=== PATIENT | female | born 1995 | race African-American/Black ===

== ENCOUNTER 2022-03-22 12:15 | Emergency (ER) | payer BC, SELFPAY ==
--- NOTE | ~2022-03-22 | US_ITS ---
EXAMINATION: US abdomen limited DATE: 03/22/2022 13:46 INDICATION: Right sided bowel. TECHNIQUE: Multiple grayscale and Doppler ultrasound images of the abdomen were obtained. COMPARISON: None available FINDINGS: Bowel gas obscures visualization of the pancreas. The visualized portions of the pancreas a re unremarkable. The liver is normal with normal echogenicity and echotexture. No surface nodularity. Normal hepatopetal flow in the main portal vein. The gallbladder is normal with no abnormal wall thi ckening, pericholecystic fluid or stones. The normal common bile duct measures 6 mm. There was no son ographic Epstein sign. IMPRESSION: 1. Normal sonographic study of the gallbladder. Reviewed, dictated and finalized at location A.
--- NOTE | ~2022-03-22 | US_ITS ---
EXAMINATION: US OB <=14 wk fetus w TV DATE: 03/22/2022 13:50 INDICATION: Right-sided abdominal pain during first trimester TECHNIQUE: Real-time pelvic transabdominal and transvaginal ultrasound was performed. COMPARISON: None. FINDINGS: The uterus measures 7.3 x 4.9 x 5.2 cm. There is an intrauterine gestational sac. A yolk s ac is identified. heart motion is identified measuring 115 beats per minute (bpm) by M-mode Dop pler. The crown rump length measures 3 mm , which correlates with an estimated gestational age of 6 weeks and 0 day(s) (+/-) 4 day(s). There is a 9 mm x 8 mm complex hyperechoic area projecting in to the gestational sac which appears to be contiguous with the adjacent myometrium. The right ovary measures 2.2 x 1.7 x 1.6 cm. The left ovary measures 2.4 x 2.1 x 2.4 cm. There is nor mal vascular flow in the ovaries. There is no free fluid in the pelvis. IMPRESSION: 1. Live intrauterine with an estimated gestational age of 6 weeks and 0 day(s) (+/-) 4 day( s) and an estimated delivery date of 11/15/2022. 2. Small complex hyperechoic area projecting into the gestational sac adjacent to the pole whic h could reflect some mucosal fibroid. Ultrasound follow-up is recommended. Reviewed, dictated and finalized at location A. IMPRESSION: 1. Live intrauterine with an estimated gestational age of 6 weeks and 0 day(s) (+/-) 4 day(s) and an estimated delivery date of 11/15/2022. 2. Small complex hyperechoic area projecting into the gestational sac adjacent to the pole which could reflect some mucosal fibroid. Ultrasound follow-u p is recommended.
[2022-03-22 12:21] VITALS: BP 119/79; PULSE 81; RESP 20; TEMP 36.8; O2SAT 100
[2022-03-22 12:28] VITALS: PULSE 82; RESP 18; O2SAT 100
[2022-03-22 12:39] LABS: Basophils Percent Auto 0.3 % (0.2-1.2); Eosinophils Absolute Auto 0.1 K/mm3 (0-0.3); Eosinophils Percent Auto 1.5 % (0-4.4); Hematocrit 39.6 % (37.0-47.0); Hemoglobin 12.8 g/dL (12.0-15.0); Immature Granulocyte Absolute 0.02 K/mm3 (0.00-0.031); Immature Granulocyte Percent A 0.3 % (0-0.5); Lymphocytes Absolute Auto 2.39 K/mm3 (0.9-3.2); Lymphocytes Percent Auto 32.3 % (18.3-44.2); Mean Corpuscular HGB Conc 32.3 g/dl (32-36); Mean Corpuscular Hemoglobin 26.7 pg (26-34); Mean Corpuscular Volume 82.7 fl (80-100); Mean Platelet Volume 8.6 fl (7.4-10.4); Monocytes Absolute Auto 0.7 K/mm3 (0.1-0.6); Monocytes Percent Auto 8.8 % (2.6-8.5); Neutrophils Absolute Auto 4.2 K/mm3 (1.3-6.7); Neutrophils Percent Auto 56.8 % (45.5-73.1); Platelet Count Result 319 k/mm3 (150-375); Red Blood Count 4.79 M/mm3 (4.2-5.4); Red Cell Distribution Width 13.7 % (11.5-14.5); White Blood Count 7.4 K/mm3 (4.5-10.0)
[2022-03-22 12:51] LABS: Appearance Urine Clear (Clear); Bilirubin Urine 1+ (Negative); Blood Urine Negative (Negative); Color Urine Yellow (Yellow); Glucose Urine UA Negative (Negative); Ketones Urine 3+ mg/dL (Negative); Leukocyte Esterase Ur Negative LEU/UL (Negative); Nitrate Urine Negative (Negative); Protein Urine Negative (Negative); Specific Grav Ur >= 1.030 (1.001-1.035); Urobilinogen Urine 0.2 mg/dL (<2.0)
[2022-03-22 12:52] LABS: Alanine Aminotransferase 9 U/L (6-35); Albumin Level 4.5 g/dL (3.5-5.1); Alkaline Phosphatase 46 U/L (38-126); Anion Gap 8 mmol/L (8-16); Aspartate Amino Transferase 23 U/L (14-36); Bilirubin,Total 0.4 mg/dL (0.2-1.3); Blood Urea Nitrogen 10 mg/dL (7-17); Calcium 9.2 mg/dL (8.4-10.2); Carbon Dioxide 21 mmol/L (22-30); Chloride 106 mmol/L (98-107); Estimated CRCL calculation 113 ml/min; Estimated Glomerular Filt Rate > 60; Glucose 81 mg/dL (65-110); Lipase 55 U/L (23-300); Potassium 3.8 mmol/L (3.4-5.0); Sodium 135 mmol/L (137-145)
[2022-03-22 12:55] LABS: Mucus Urine Rare /lpf; Squamous Epithelial Cell Urine Few /hpf (Few); WBC Urine 0-3 /hpf
[2022-03-22 12:58] LABS: Add Urine Microscopic? YES
--- NOTE | 2022-03-22 13:12 | ED.ABDPAIN ---
HPI - Abdominal Pain General Chief Complaint: Abdominal Pain Stated Complaint: , shoulder pain Time Seen by Provider: 03/22/22 12:45 History of Present Illness HPI narrative: 26-year-old female that is approximately 6 weeks presents to the emergency department for evaluation of multiple weeks of right upper quadrant pain. Patient states the pain is worsened with eating. Patient describes right-sided abdominal pain. More in the right upper quadrant. Patient was referred by her primary care physician to rule out ectopic. Patient states that she is scheduled tomorrow for an elective . Related Data Allergies Allergy/AdvReac Type Severity Reaction Status Date / Time No Known Allergies Allergy Verified 03/22/22 12:29 Review of Systems Review of Systems: CONSTITUTIONAL: Denies fever, chills, or sweats. EYES: Denies visual changes, redness, or discharge. ENT: Denies rhinorrhea, congestion, sore throat, or otalgia. CARDIOVASCULAR: Denies chest pain, palpitations, or edema. RESPIRATORY: Denies cough or dyspnea. GASTROINTESTINAL: See HPI GENITOURINARY: Denies dysuria or hematuria. SKIN: Denies rash or itching. MUSCULOSKELETAL: Denies back pain, joint pain, or myalgia. NEUROLOGIC: Denies headache, numbness, or weakness. Exam Narrative: APPEARANCE: Well appearing, no pain, no distress, well-nourished. HEAD: normocephalic, atraumatic. EYES: PERRLA/EOMI, conjunctivae clear. NOSE: Normal no drainage NECK: Supple. No adenopathy, no masses. RESPIRATORY: Airway patent, respirations nonlabored. Clear to auscultation bilaterally, no rales, rhonchi, wheezing. CARDIOVASCULAR: Regular rate and rhythm without murmurs rubs or gallops. ABDOMINAL: Mild right upper quadrant tenderness to palpation. Normal bowel sounds MUSCULOSKELETAL: Moves all extremities. Strength/ROM intact, No edema, No calf tenderness. NEURO: Alert. Cranial nerves II through XII intact. Grossly intact SKIN: Warm, dry. Normal Color Course Course Emergency Course: Patient was updated the results of the ultrasounds. Patient felt improved. Patient was educated on reasons to return to the emergency room. All questions and concerns were addressed. Patient was well-appearing at time of discharge. Vital Signs Vital signs: Vital Signs Temperature 98.2 F 03/22/22 12:21 Pulse Rate 81 03/22/22 12:21 Respiratory Rate 20 03/22/22 12:21 Blood Pressure 119/79 03/22/22 12:21 Pulse Oximetry 100 03/22/22 12:21 Oxygen Delivery Room Air 03/22/22 12:21 Temperature 98.2 F 03/22/22 12:21 Pulse Rate 80 03/22/22 16:00 Respiratory Rate 16 03/22/22 16:00 Blood Pressure 120/72 03/22/22 16:00 Pulse Oximetry 100 03/22/22 16:00 Oxygen Delivery Room Air 03/22/22 12:28 MDM - Abdominal Pain Lab Data Attestation: I reviewed the patient's lab results. Result diagrams: 03/22/22 12:33 03/22/22 12:33 Labs: Lab Results 03/22/22 03/22/22 03/22/22 Range/Units 12:33 12:33 12:40 WBC 7.4 (4.5-10.0) K/mm3 RBC 4.79 (4.2-5.4) M/mm3 Hgb 12.8 (12.0-15.0) g/dL Hct 39.6 (37.0-47.0) % MCV 82.7 (80-100) fl MCH 26.7 (26-34) pg MCHC 32.3 (32-36) g/dl RDW 13.7 (11.5-14.5) % Plt Count 319 (150-375) k/mm3 MPV 8.6 (7.4-10.4) fl Immature Gran % (Auto) 0.3 (0-0.5) % Neut % (Auto) 56.8 (45.5-73.1) % Lymph % (Auto) 32.3 (18.3-44.2) % Barbour % (Auto) 8.8 H (2.6-8.5) % Eos % (Auto) 1.5 (0-4.4) % Baso % (Auto) 0.3 (0.2-1.2) % Lymph # (Auto) 2.39 (0.9-3.2) K/mm3 Barbour # (Auto) 0.7 H (0.1-0.6) K/mm3 Eos # (Auto) 0.1 (0-0.3) K/mm3 Baso # (Auto) 0.0 (0.0-0.1) K/mm3 Abs Immat Gran (auto) 0.02 (0.00-0.031) K/mm3 Absolute Neuts (auto) 4.2 (1.3-6.7) K/mm3 Absolute Nucleated RBC 0.0 (0.0-0.012) K/mm3 Nucleated RBC % 0.0 (0.0-0.2) % Sodium 135 L (137-145) mmol/L Potassium 3.8 (3.4-5.0) mmol/L Chlor
[2022-03-22] MEDS: HYDROmorphone HCL INJ (*CRX) 1 MG/ML SYR 0.5 MG IV PUSH (14:46)
[2022-03-22] MEDS: SODIUM CHLORIDE 0.9% IV 1,000 ML 999 ML IV CONT (14:46)
[2022-03-22] MEDS: BELLADONNA ALK/PHENOB ELIX 10 ML, MAG HYDROX/ALUMINUM HYD/SIMETH 30 ML, LIDOCAINE HCL 2... PO (14:46)
[2022-03-22 16:00] VITALS: BP 120/72; PULSE 80; RESP 16; O2SAT 100
== END 2022-03-22 16:01 | disposition home or self-care (01) ==
PROVIDERS: Emergency Medicine; Emergency Provider Emergency Medicine
DX: O26.891 Other specified pregnancy related conditions, first trimester (principal); R10.11 Right upper quadrant pain; Z3A.01 Less than 8 weeks gestation of pregnancy
CPT/HCPCS: 36415; 76705; 76801; 76817; 80053; 81001; 81025; 83690; 84702; 85025; 96361; 96374; 99284; A9270; J1170; J7030

== ENCOUNTER 2022-08-04 19:19 | Emergency (ER) | payer BC, SELFPAY ==
--- NOTE | ~2022-08-04 | XR_ITS ---
EXAM: XR shoulder LT min 2V DATE: 08/04/2022 20:17 HISTORY: shoulder pain/injury . COMPARISON: None available. FINDINGS: Normal mineralization. No fracture or nondisplaced oblique fracture of the left acromion. No lytic or blastic lesion. Joint spaces are maintained. No erosion or periosteal change. Soft tissue s within normal limits. IMPRESSION: Nondisplaced left acromial fracture. Reviewed, dictated and finalized at location K.
[2022-08-04 19:34] VITALS: BP 150/84; PULSE 82; RESP 18; TEMP 36.9; O2SAT 100
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
[2022-08-04 22:27] VITALS: BP 138/87; PULSE 80; RESP 18; O2SAT 100
== END 2022-08-04 22:29 | disposition home or self-care (01) ==
LOC: ANHED 21:53
PROVIDERS: Emergency Provider Nurse Practitioner Family
DX: S42.125A Nondisplaced fracture of acromial process, left shoulder, initial encounter for closed fracture (principal); Y04.2XXA Assault by strike against or bumped into by another person, initial encounter
CPT/HCPCS: 73030; 99283; A4565